=== PATIENT | male | born 1995 | race African-American/Black ===

== ENCOUNTER 2021-09-30 17:18 | Emergency (ER) | payer OTHER ==
[2021-09-30] MEDS ORDERED: IBUPROFEN 400 MG TAB ONE (17:49)
[2021-09-30] MEDS ORDERED: CYCLOBENZAPRINE 10 MG TAB ONE (17:49)
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
[2021-09-30 19:17] VITALS: BP 116/69; TEMP 98.5; O2SAT 100
--- OUTSIDE RECORDS SUMMARY | 2021-10-06 15:47 | XMS REPORT | Continuity of Care Document ---
:1995 Author Organization [facility] Address [address] [place] [address] Dr. Oakley [address] [place] [id number] Care Team Providers Name Role Phone Unavailable Unavailable Unavailable Problems This patient has no known problems. Allergies, Adverse Reactions, Alerts This patient has no known allergies or adverse reactions. Medications This patient has no known medications. Procedures This patient has no known procedures. Encounters Start End Encounter Admission Attending Care Care Encounter Source Date/Time Date/Time Type Type Clinicians Facility Department ID 2018-08-13 2018-08-13 Outpatient [facility] [id number] [address] 00:00:00 00:00:00 [facility] 2018-04-16 2018-04-17 Outpatient [facility] [id number] [address] [place] [address] 00:00:00 00:00:00 [facility] Results This patient has no known results.
== END 2021-09-30 19:00 | disposition home or self-care (01) ==
LOC: ER 17:18
DX: S29.012A Strain of muscle and tendon of back wall of thorax, initial encounter (principal); S21.209A Unspecified open wound of unspecified back wall of thorax without penetration into thoracic cavity, initial encounter; V43.52XA Car driver injured in collision with other type car in traffic accident, initial encounter; Y92.410 Unspecified street and highway as the place of occurrence of the external cause; F17.210 Nicotine dependence, cigarettes, uncomplicated
CPT/HCPCS: 99283